=== PATIENT | female | born 1940 | race Two or more races ===

== ENCOUNTER 2020-07-04 23:22 | Emergency (ER) | payer MEDICARE, OTHER ==
[~2020-07-04] VITALS: Ht 165.1 cm; Wt 81.2 kg
--- NOTE | 2020-07-04 23:30 | NUR ---
pt bibra from home. pt called ed c/o high blood pressure, pt denies any headache or chest pain. placed on monitor. [email or web address] md chiu.
--- NOTE | 2020-07-04 23:32 | NUR ---
dr doe at bedside for eval.
[2020-07-05] LABS: BASOPHILS % (AUTO) 0.7 % (0.0-2.0); EOSINOPHILS % (AUTO) 1.9 % (0.0-6.0); HEMATOCRIT 34 % (33-45); HEMOGLOBIN 11.1 g/dL (11.5-14.8); LYMPHOCYTES % (AUTO) 35.3 % (20.0-44.0); MEAN CORPUSCULAR HGB CONC 33 g/dl (31.0-36.0); MEAN CORPUSCULAR VOLUME 89 fL (82-100); MONOCYTES # (AUTO) 0.6 /CMM (0.1-1.30); MONOCYTES % (AUTO) 11.2 % (2.0-12.0); NEUTROPHILS # (AUTO) 2.9 /CMM (1.8-8.9); NEUTROPHILS % (AUTO) 50.9 % (43.0-81.0); PLATELET COUNT (AUTO) 218 /CMM (150-450); RED BLOOD CELL COUNT(AUTO) 3.87 MIL/uL (4.0-5.2); WHITE BLOOD COUNT (AUTO) 5.7 K/uL (4.3-11.0)
[2020-07-05 00:09] LABS: CARBON DIOXIDE 29 mmol/L (21-32); CHLORIDE 110 mmol/L (98-107); CREATININE 1.1 mg/dL (0.6-1.3); GLUCOSE 121 mg/dL (74-106); POTASSIUM 4.2 mmol/L (3.5-5.1); SODIUM SERUM 147 mmol/L (136-145); UREA NITROGEN, BLOOD 30 mg/dL (7-18)
[2020-07-05 00:21] LABS: B-TYPE NATRIURETIC PEPTIDE 508 PG/ML (0-125)
--- NOTE | 2020-07-05 02:23 | NUR ---
PER [facility] DISPATCH, PT WILL BE PICKED UP IN 45 MINUTES TO BE TAKEN HOME.
--- NOTE | 2020-07-05 03:20 | NUR ---
pt transported back to her residence in stable condition.
[2020-07-05 03:22] VITALS: BP 152/84
== END 2020-07-05 03:22 | disposition home or self-care (01) ==
LOC: ER 23:24
DX: I10 Essential (primary) hypertension (principal)
CPT/HCPCS: 36415; 71045-TC; 80048-TC; 83880; 84484-TC; 85025-TC